=== PATIENT | male | born 1970 | race Two or more races ===

== ENCOUNTER 2020-06-10 22:26 | Emergency (ER) | payer MEDICAID ==
[~2020-06-10] VITALS: Ht 165.1 cm; Wt 59.0 kg
[2020-06-11] MEDS ORDERED: IBUPROFEN 600MG TABLET PO STA (02:58)
[2020-06-11 03:23] VITALS: BP 151/88
== END 2020-06-11 03:26 | disposition home or self-care (01) ==
LOC: ER 22:26
DX: R06.00 Dyspnea, unspecified (principal); R50.9 Fever, unspecified; Z20.828 Contact with and (suspected) exposure to other viral communicable diseases; R05 Cough; R07.89 Other chest pain; M79.18 Myalgia, other site
CPT/HCPCS: 71045; 93005; 99283

== ENCOUNTER 2021-02-17 19:41 | Emergency (ER) | payer MEDICAID ==
[~2021-02-17] VITALS: Ht 160 cm; Wt 59.0 kg
[2021-02-17] MEDS ORDERED: ACETAMINOPHEN 325MG TABLET PO ONE (21:45)
[2021-02-18] MEDS ORDERED: IBUP-2029 MT (00:54)
[2021-02-18 01:15] VITALS: BP 134/76
== END 2021-02-18 01:17 | disposition home or self-care (01) ==
LOC: ER 19:41
DX: S50.01XA Contusion of right elbow, initial encounter (principal); M25.511 Pain in right shoulder; R03.0 Elevated blood-pressure reading, without diagnosis of hypertension; W22.8XXA Striking against or struck by other objects, initial encounter; Y93.89 Activity, other specified; Y92.89 Other specified places as the place of occurrence of the external cause
CPT/HCPCS: 71045; 73070; 99284; A4565